=== PATIENT | male | born 1980 | race American Indian/Alaskan Native ===

== ENCOUNTER 2022-04-07 10:09 | Emergency (ER) | payer SELFPAY ==
[2022-04-07 15:03] VITALS: BP 162/89
[2022-04-07] MEDS ORDERED: CYCLOBENZAPRINE 10 MG TAB PO ONE (15:37)
[2022-04-07] MEDS ORDERED: KETOROLAC 10 MG TAB PO ONE (15:37)
[2022-04-07] MEDS ORDERED: oxyCODONE /ACETAMINOPHEN 5-325MG TAB PO ONE (15:38)
[2022-04-07] MEDS ORDERED: dexAMETHasone 4 MG/ML VIAL IM ONE (15:38)
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
== END 2022-04-07 16:12 | disposition home or self-care (01) ==
LOC: ED 10:09
DX: M54.50 Low back pain, unspecified (principal); M54.2 Cervicalgia; V89.2XXA Person injured in unspecified motor-vehicle accident, traffic, initial encounter; Y93.89 Activity, other specified; Y92.89 Other specified places as the place of occurrence of the external cause; Y99.8 Other external cause status
CPT/HCPCS: 96372; 99282; J1100